=== PATIENT | female | born 2000 | race Caucasian/White ===

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

== ENCOUNTER 2025-02-01 20:03 | Inpatient (IN) | payer BC ==
--- NOTE | 2025-02-01 20:39 | ED ---
Psych HPI - General Chief Complaint: Psychiatric Symptoms Stated Complaint: mental health eval Time Seen by Provider: 02/01/25 20:16 Source: patient Mode of arrival: ambulatory - History of Present Illness Initial Comments: 25-year-old female presenting for mental health evaluation. Patient states that she has had depression for quite some time. Is been made worse recently by the fact that she was just served eviction papers. She reports that she works long hours and does not get to spend much time with her daughter and when she does she is very tired. States that she has had suicidal thoughts with no plan. No homicidal ideation. She reports that she is very tired and frustrated and is not sure where to turn or what to do. No physical complaints today. She is cu rrently on her menstrual cycle. - Related Data Home Medications Medication Instructions Recorded Confirmed Etonogestrel [Nexplanon ( 68 mg SQ [id number] 12/17/15 11/05/16 control implant)] Sertraline [Zoloft] 50 mg PO HS 11/05/16 11/05/16 Allergies Allergy/AdvReac Type Severity Reaction Status Date / Time lidocaine AdvReac Rapid Verified 02/01/25 20:14 Heart Rate Review of Systems ROS Statement: Those systems with pertinent positive or pertinent negative responses have been documented in the HPI. ROS Other: All systems not noted in ROS Statement are negative. Past Medical History Past Medical History: No Reported History History of Any Multi-Drug Resistant Organisms: None Reported Past Surgical History: No Surgical Hx Reported Past Psychological History: Anxiety, Depression Past Alcohol Use History: None Reported Past Drug Use History: None Reported - Past Family History Mother Family Medical History: Cancer Father Family Medical History: Hypertension General Exam Limitations: no limitations General appearance: alert, in no apparent distress Head exam: Present: atraumatic, normocephalic, normal inspection Eye exam: Present: normal appearance, EOMI Neck exam: Present: normal inspection. Absent: meningismus Respiratory exam: Absent: respiratory distress Neurological exam: Present: alert, oriented X3 Psychiatric exam: Present: normal affect, normal mood Skin exam: Present: warm, dry, normal color Course Vital Signs 02/01/25 02/02/25 02/02/25 20:08 03:00 03:49 Temperature 97.9 F 98.0 F Pulse Rate 115 H 86 Pulse Rate [ 68 Pulse Oximetery ] Respiratory 18 18 16 Rate Blood Pressure 138/86 127/78 Blood Pressure 111/76 [Right Arm Sitting] O2 Sat by Pulse 95 98 Oximetry Medical Decision Making - Medical Decision Making Was pt. sent in by a medical professional or institution (, JUAN, MEDIA PLANNER, urgent care, hospital, or correction...) When possible be specific @ -No Did you speak to anyone other than the patient for history (EMS, parent, family, police, friend...)? What history was obtained from this source @ -No Did you review nursing and triage notes (agree or disagree)? Why? @ -I reviewed and agree with nursing and triage notes Were old charts reviewed (outside hosp., previous admission, EMS record, old EKG, old radiological studies, urgent care reports/EKG's, correction records)? Report findings @ -No old charts were reviewed Differential Diagnosis (chest pain, altered mental status, abdominal pain women, abdominal pain men, vaginal bleeding, weakness, fever, dyspnea, syncope, headache, dizziness, GI bleed, back pain, seizure, CVA, palpatations, mental he alth, musculoskeletal)? @ -Differential Mental Health Depression, anxiety, bipolar, psychosis, schizophrenia, borderline personality, situational depression, adjustment disorder, behavioral disorder, brain tumor, malingering, substance abuse, encephalopathy, medication reaction, dementia, hypothyroidism, degenerative neurologic disorder, lupus.... This is not meant to be all-inclusive list EKG interpreted by me (3pts min.). @ -As above X-rays interpreted by me (1pt min.). @ -None done CT interpreted by me (1pt min.). @ -None done U/S interpreted by me (1pt. min.). @ -None done What testing was considered but not performed or refused? (CT, X-rays, U/S, labs)? Why? @ -None What meds were considered but not given or refused? Why? @ -None Did you discuss the management of the patient with other professionals (professionals i.e. JUAN Acosta, MEDIA PLANNER, lab, RT, psych nurse, social services designee, lawyer criminal, teacher, division officer weapons department, case specialist)? Give summary @ -Spoke with EPS nurse Was smoking cessation discussed for >3mins.? @ -No Was critical care preformed (if so, how long)? @ -No Were there social determinants of health that impacted care today? How? (Homelessness, low income, unemployed, alcoholism, drug addiction, transportation, low edu. Level, literacy, decrease access to med. care, nursing home, rehab)? @ -No Was there de-escalation of care discussed even if they declined (Discuss DNR or withdrawal of care, Hospice)? DNR status @ -No What co-morbidities impacted this encounter? (DM, HTN, Smoking, COPD, CAD, Cancer, CVA, ARF, Chemo, Hep., AIDS, mental health diagnosis, sleep apnea, morb id obesity)? @ -None Was patient admitted / discharged? Hospital course, mention meds given and route, prescriptions, significant lab abnormalities, going to OR and other pertinent info. @ -25-year-old female presenting for mental health evaluation. Urine concerning for UTI, patient started on Macrobid. She is medically cleared. EPS determined she meets inpatient criteria. Patient agreeable. Undiagnosed new problem with uncertain prognosis? @ -No Drug Therapy requiring intensive monitoring for toxicity (Heparin, Nitro, Insulin, Cardizem)? @ -No Were any procedures done? @ -No Diagnosis/symptom? @ -Depression Acute, or Chronic, or Acute on Chronic? @ -Acute on chronic Uncomplicated (without systemic symptoms) or Complicated (systemic symptoms)? @ -Complicated Side effects of treatment? @ -No Exacerbation, Progression, or Severe Exacerbation? @ -No Poses a threat to life or bodily function? How? (Chest pain, USA, AL, pneumonia, PE, COPD, DKA, ARF, appy, cholecystitis, CVA, Diverticulitis, Homicidal, Suicidal, threat to staff... and all critical care pts) @ -Yes - Lab Data Lab Results 02/01/25 02/01/25 02/01/25 Range/Units 20:30 20:30 23:59 Urine Color Yellow Urine Appearance Cloudy H (Clear) Urine pH 6.0 (5.0-8.0) Ur Specific [place] 1.036 H (1.001-1.035) Urine Protein 1+ H (Negative) Urine Glucose (UA) Negative (Negative) Urine Ketones 1+ H (Negative) Urine Blood Moderate H (Negative) Urine Nitrite Positive H (Negative) Urine Bilirubin Negative (Negative) Urine Urobilinogen 2.0 (<2.0) mg/dL Ur Leukocyte Esterase Large H (Negative) Urine RBC 4 (0-5) /hpf Urine WBC 55 H (0-5) /hpf Urine WBC Clumps Rare H (None) /hpf Ur Squamous Epith Cells 8 H (0-4) /hpf Urine Bacteria Occasional H (None) /hpf Hyaline Casts 5 H (0-2) /lpf Urine Mucus Many H (None) /hpf Urine Yeast (Budding) Occasional H (None) /hpf Urine HCG, Qual Not Detected (Not Detectd) Urine Opiates Screen Not Detected (NotDetected) Ur Oxycodone Screen Not Detected (NotDetected) Urine Methadone Screen Not Detected (NotDetected) Ur Barbiturates Screen Not Detected (NotDetected) U Tricyclic Antidepress Detected H (NotDetected) Ur Phencyclidine Scrn Not Detected (NotDetected) Ur Amphetamines Screen Detected H (NotDetected) U Methamphetamines Scrn Not Detected (NotDetected) U Benzodiazepines Scrn Detected H (NotDetected) Urine Cocaine Screen Not Detected (NotDetected) U Marijuana (THC) Screen Detected H (NotDetected) Influenza Type A (PCR) Not Detected (Not Detectd) Influenza Type B (PCR) Not Detected (Not Detectd) RSV (PCR) Not Detected (Not Detectd) SARS-CoV-2 (PCR) Not Detected (Not Detectd) Disposition Clinical Impression: Depression Disposition: ADMITTED IP TO THIS HOSP Condition: Fair Time of Disposition: 23:33
[2025-02-01 21:10] LABS: Bacteria,Urine Occasional /hpf; Bilirubin,Urine Negative (Negative); Blood,Urine Moderate (Negative); Budding Yeast,Urine Occasional /hpf; Color,Urine Yellow; Glucose,Urine (UA) Negative (Negative); Hyaline Casts,Urine 5 /lpf (0-2); Ketones,Urine 1+ (Negative); Leukocyte Esterase,Urine Large (Negative); Mucus,Urine Many /hpf; Nitrite,Urine Positive (Negative); PH, Urine 6.0 (5.0-8.0); Protein,Urine 1+ (Negative); RBC,Urine 4 /hpf (0-5); Specific Gravity,Urine 1.036 (1.001-1.035); Squamous Epithelial Cell,Urine 8 /hpf (0-4); Urobilinogen,Urine 2.0 mg/dL (<2.0); WBC,Urine 55 /hpf (0-5)
[2025-02-01 21:11] LABS: Barbiturate Screen,Urine Not Detected (NotDetected); Benzodiazepines Screen,Urine Detected (NotDetected); Opiate Screen,Urine Not Detected (NotDetected); Oxycodone Screen, Urine Not Detected (NotDetected); Phencyclidine Screen,Urine Not Detected (NotDetected); Tricyclic Antidepressant,Urine Detected (NotDetected); Urn Cannabinoid Scrn Detected (NotDetected)
[2025-02-02 01:02] LABS: RSV Not Detected (Not Detectd)
[2025-02-02] MEDS ORDERED: HALOPERIDOL LACTATE 5 MG/ML 1 ML VIAL IM PRN (03:52)
[2025-02-02] MEDS ORDERED: MAGNESIUM HYDROXIDE 2,400 MG/30 ML CUP PO PRN (03:52)
[2025-02-02] MEDS ORDERED: IBUPROFEN 600 MG TAB PO PRN (03:52)
[2025-02-02] MEDS ORDERED: MAG HYDROX/AL HYDROX/SIMETH 355 ML BOTTLE PO PRN (03:52)
[2025-02-02] MEDS ORDERED: ACETAMINOPHEN TAB 325 MG TAB PO PRN (03:52)
[2025-02-02] MEDS ORDERED: LORazepam 1 MG/0.5 ML VIAL IM PRN (03:52)
[2025-02-02] MEDS: NICOTINE 14MG/24HR PATCH TRANSDERM SCH (08:30)
[2025-02-02] MEDS: NITROFURANTOIN MONOHYD/M-CRYST 100 MG CAP PO SCH (08:30)
[2025-02-02] MEDS ORDERED: ETONOGESTREL SQ SCH (09:00)
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
[2025-02-02] MEDS: NICOTINE GUM (POLACRILEX) 2 MG GUM BUCCAL PRN (12:55)
[2025-02-02] MEDS: LORazepam 1 MG TAB PO PRN (21:16)
[2025-02-03 12:31] LABS: Basophils # (A) 0.06 10*3/uL (0.00-0.10); Basophils % (A) 0.9 %; Eosinophils # (A) 0.12 10*3/uL (0.04-0.35); Eosinophils % (A) 1.8 %; HCT 38.8 % (37.2-46.3); HGB 13.1 g/dL (12.0-15.0); Lymphocytes # (A) 1.83 10*3/uL (0.90-5.00); Lymphocytes % (A) 27.6 %; MCH 29.8 pg (27.0-32.0); MCHC 33.8 g/dL (32.0-37.0); MCV 88.2 fL (80.0-97.0); Monocytes # (A) 0.45 10*3/uL (0.20-1.00); Monocytes % (A) 6.8 %; Neutrophils # (A) 4.17 10*3/uL (1.80-7.70); Neutrophils % (A) 62.7 %; Platelet Count 345 10*3/uL (140-440); RBC 4.40 10*6/uL (4.10-5.20); RDW 11.9 % (11.5-14.5); WBC 6.64 10*3/uL (4.50-10.00)
[2025-02-03] MEDS: FLUCONAZOLE 100 MG TAB PO SCH (12:40)
[2025-02-03] MEDS: TRIAMCINOLONE ACET 0.1% OINTMENT 15 GM TUBE TOPICAL SCH (12:41)
[2025-02-03 12:52] LABS: ALT 17 U/L (4-34); AST 23 U/L (14-36); African American GFR (CKD) >90 (>60 ml/min/1.73 sqM); Albumin 4.2 g/dL (3.5-5.0); Alkaline Phosphatase 84 U/L (38-126); Anion Gap 12 mmol/L; Bilirubin, Delta 0.2 mg/dL (0.0-0.2); Bilirubin,Unconjugated 0.4 mg/dL (0.0-1.1); Blood Urea Nitrogen 8 mg/dL (7-17); Calcium 10.0 mg/dL (8.4-10.2); Carbon Dioxide 22 mmol/L (22-30); Chloride 106 mmol/L (98-107); Glucose 90 mg/dL (74-99); Non-African American GFR(CKD) >90 (>60 ml/min/1.73 sqM); Potassium 4.4 mmol/L (3.5-5.1); Sodium 140 mmol/L (137-145); Total Protein 7.4 g/dL (6.3-8.2)
--- NOTE | 2025-02-03 13:47 | P.PN ---
Progress Note - Text Progress Note Date: 02/03/25 Interval History: Patient was seen laying in bed and was directable and agreeable to speak with assembly instructions writer in the room. Patient reports feeling tired however did states she was not sleeping prior to admission. She mentions sleeping well overnight with the Ativan but was agreeable with trying trazodone tonight for sleep. She admits to chronic skin picking, stating that stress worsens this and has been ongoing her entire life. She has not consistently seeing a therapist due to past issues but this was encouraged for her excoriation. Patient reports living with herself and her daughter however her brother is supportive and looking after her daughter. At this time patient denies any suicidal or homicidal ideations, intent or plan. Patient denies any auditory, visual hallucinations and denies any paranoia or delusions. Patient denies any side effects from the medications and has been compliant with meds. Mental Status Exam: General Appearance: Patient appears to be stated age is fatigued but directable, and cooperative. Behavior: Patient is calmly laying without any agitated behavior. Speech: Patient's speech is fluent and nonpressured. Mood/Affect: Mood is improving mildly, affect is congruent and constricted. Suicidality/Homicidality: Patient denies having any suicidal or homicidal ideation intent or plan. Perceptions: Patient denies any visual hallucinations and denies any auditory hallucinations Though content/process: There is no evidence of any delusional thought content and thought process is linear and goal-directed. Memory and concentration: AOX3, grossly intact for the purposes of this session Judgment and insight: Improving mildly Assessment Major depressive disorder, recurrent Excoriation disorder Generalized anxiety disorder Cluster B personality disorder Cannabis use disorder Nicotine dependence Plan: -Patient continues to meet criteria for inpatient psychiatric admission for symptom stabilization and safety. Patient has signed adult voluntary form and medication consent and was placed in patient's chart. -Medications: Increase Prozac to 40 mg daily tomorrow for depression/anxiety, start trazodone 50 mg at bedtime for insomnia -When necessary Ativan and Haldol for agitation/aggression. -Labs: Reviewed -NRT - nicotine patch -SW on board for discharge planning. Encouraged the patient to participate in milieu. Anticipate discharge home with daughter on Thursday
[2025-02-03 19:16] LABS: Cholesterol 177.00 mg/dL (0.00-200.00); HDL Cholesterol 42.40 mg/dL (40.00-60.00); LDL Cholesterol,Calculated 123.1 mg/dL (0.0-131.0); Triglycerides 57.30 mg/dL (0.00-149.00); VLDL Calculation 11.46 mg/dL (5.00-40.00)
[2025-02-04] MEDS: NICOTINE GUM (POLACRILEX) 2 MG GUM BUCCAL PRN (19:24)
[2025-02-05 12:45] VITALS: RESP 16
[2025-02-05] MEDS: OLANZapine 10 MG TAB PO PRN (16:18)
--- NOTE | 2025-02-05 18:10 | P.MDCNMH ---
History of Present Illness H&P Date: 02/05/25 Chief Complaint: Medical management 25-year-old woman with no significant medical history presented for evaluation of mental health. Patient has significant anxiety issues and is following in the mental health unit voluntarily. She has not seen a physician in over 4 years, but reports intermittent blackout episodes that have yet to be evaluated. Otherwise, she has no acute complaints at this time and no major chronic medical conditions including hypertension, hyperlipidemia, diabetes, history of stroke or MA. Patient is hemodynamically stable. CBC, CMP, lipid panel, TSH are unremarkable. Urinalysis was contaminated. Urine tox appearance positive for tricyclic antidepressants, amphetamines, benzodiazepines, marijuana. Influenza A, B, RSV, COVID are negative. No images to review. Gen: In NAD, non-toxic HEENT: normocephalic, atraumatic, hearing acuity is intant, mucous membranes moist CVS: perfusing all extremities well, no pitting edema, Respiratory: symmetric chest expansion, no accessory muscle use, GI: soft, NTTP, ND, : no suprapubic tenderness, no CVA tenderness MSK/Derm: no rashes, cyanosis Neuro: CN II-XII intact, no motor weakness, Psych: cooperative, euthymic mood, judgment and insight is intact Labs and imaging as above Assessment/plan: Mildly overweight -Diet and exercise counseling - Outpatient weight loss referral - Recommend establishment with PCP, referral will be made to internal medicine clinic upon discharge Anxiety Major depressive disorder -Care per primary team Thank you for this consult, please reach out with any further questions or concerns. Past Medical History Past Medical History: No Reported History History of Any Multi-Drug Resistant Organisms: None Reported Past Surgical History: No Surgical Hx Reported Past Anesthesia/Blood Transfusion Reactions: Unable to Obtain Past Psychological History: Anxiety, Depression Past Alcohol Use History: None Reported Past Drug Use History: None Reported - Past Family History Mother Family Medical History: Cancer Father Family Medical History: Hypertension Medications and Allergies Home Medications Medication Instructions Recorded Confirmed Type Etonogestrel [Nexplanon ( 68 mg SQ [id number] 12/17/15 11/05/16 History control implant)] Sertraline [Zoloft] 50 mg PO HS 11/05/16 11/05/16 History Allergies Allergy/AdvReac Type Severity Reaction Status Date / Time lidocaine AdvReac Rapid Verified 02/01/25 20:14 Heart Rate Physical Exam Osteopathic Statement: *. No significant issues noted on an osteopathic structural exam other than those noted in the History and Physical/Consult. Vitals: Vital Signs Temp Pulse Resp BP Pulse Ox 02/05/25 12:40 97.8 F 80 16 110/62 98 02/04/25 21:00 98.3 F 97 18 101/65 99 Intake and Output 02/05/25 02/05/25 02/05/25 06:59 14:59 22:59 Other: Weight 66.1 kg Cranial Nerve Examination - Cranial Nerves Cranial Nerve II- Optic: Intact Cranial Nerve III- Oculomotor: Intact Cranial Nerve IV- Trochlear: Intact Cranial Nerve V- Trigeminal: Intact Cranial Nerve - Abducens: Intact Cranial Nerve VII- Facial: Intact Cranial Nerve VIII- Auditory: Intact Cranial Nerve IX- Glossopharyngeal: Intact Cranial Nerve X- Vagus: Intact Cranial Nerve XI- Accessory: Intact Cranial Nerve XII- Hypoglossal: Intact Results CBC & Chem 7: 02/03/25 11:52 02/03/25 11:52
--- NOTE | 2025-02-05 22:23 | P.PN ---
Progress Note - Text Progress Note Date: 02/04/25 Interval History: Patient was seen in the hallway and was cooperative with assessment. She claims she is doing well, reports mood is good. Felsl her anxiety and depression are improving. She reports concern over feeling uncomfortable around her roommate who has a severe mental illness and therefore she is spending most of the day out of their room to minimize contact with the roommate. She hopes she can switch rooms. She is recorded as having slept about 6 hours last night. She asks for a higher dose of Trazodone to help her sleep. At this time patient denies any suicidal or homicidal ideation, intent or plan. Patient denies any auditory, visual hallucinations and denies any paranoia or delusions. Patient denies any side effects from the medications and has been compliant with meds. She inquires about discharge on Thursday. Mental Status Exam: General Appearance: Patient appears to be stated age, dressed in clean casual attire, hair is combed and braided, wearing eyeglasses Behavior: Patient is calmly standing without any agitated behavior. Speech: Patient's speech is fluent and nonpressured. Mood/Affect: Mood is improving mildly, affect is congruent and constricted. Suicidality/Homicidality: Patient denies having any suicidal or homicidal ideation intent or plan. Perceptions: Patient denies any visual hallucinations and denies any auditory hallucinations Though content/process: There is no evidence of any delusional thought content and thought process is linear and goal-directed. Memory and concentration: AOX3, grossly intact for the purposes of this session Judgment and insight: Improving mildly Assessment/Plan: Continue with current diagnosis. Patient continues to meet criteria for inpatient psychiatric admission for symptom stabilization and safety. Increase Trazodone to 100 mg QHS for sleep. Monitor for medication compliance and for any psychotropic medication side effects. Will continue to monitor ongoing response to treatment. Encouraged participation in milieu.
--- NOTE | 2025-02-05 22:27 | P.PN ---
Progress Note - Text Progress Note Date: 02/05/25 Interval history: Patient was seen resting in bed in her room, awakens easily, and was cooperative with assessment. She claims she is doing ok, appears tired and has difficulty staying awake for assessment. She is recorded as having slept only about 4 hours last night. She then received Ativan 1 mg po x 1 at around 11:33am. Her room was switched yesterday due to feeling uncomfortable around a paranoid roommate, and she feels better regarding that today. At this time patient denies any suicidal or homicidal ideation, intent or plan. Patient denies any auditory, visual hallucinations and denies any paranoia or delusions. Patient denies any side effects from the medications and has been compliant with meds. She inquires about discharge on Thursday. Mental Status Exam: General Appearance: Patient appears to be stated age, dressed in clean casual attire, hair is combed and braided, wearing eyeglasses Behavior: Patient is calmly laying without any agitated behavior, sleepy, has difficulty staying awake Speech: Patient's speech is fluent and nonpressured. Mood/Affect: Mood is improving mildly, affect is congruent and constricted. Suicidality/Homicidality: Patient denies having any suicidal or homicidal ideation intent or plan. Perceptions: Patient denies any visual hallucinations and denies any auditory hallucinations Though content/process: There is no evidence of any delusional thought content and thought process is linear and goal-directed. Memory and concentration: AOX3, grossly intact for the purposes of this session Judgment and insight: Improving mildly Assessment/Plan: Continue with current diagnosis. Patient continues to meet criteria for inpatient psychiatric admission for symptom stabilization and safety. Continue medications as currently prescribed. Monitor for medication compliance and for any psychotropic medication side effects. Will continue to monitor ongoing response to treatment. Encouraged participation in milieu.
[2025-02-05] MEDS: MELATONIN 5 MG TABLET PO SCH (23:47)
[2025-02-06 11:05] VITALS: BP 101/67; PULSE 77; TEMP 97.7
--- NOTE | 2025-02-06 14:03 | P.DS ---
Providers Date of admission: 02/02/25 03:34 Expected date of discharge: 02/06/25 Attending physician: Zoe River MD Consults: 02/02/25 03:52 Consult Physician Routine Consulting Provider: Vincenzo Griffin Consult Reason/Comments: Medical H&P Do you want consulting provider notified?: Yes Primary care physician: CHRISTI SHEFFIELD NPC - Discharge Diagnosis(es) (1) Major depressive disorder, recurrent Status: Acute Priority: High (2) Excoriation (skin-picking) disorder Status: Acute Priority: Medium (3) Generalized anxiety disorder Status: Acute Priority: Medium (4) Cluster B personality disorder Status: Chronic Priority: Medium (5) Cannabis use disorder Status: Acute Priority: Low (6) Nicotine dependence Status: Acute Priority: Low Hospital Course: Admission HPI: Admission note was completed by Dr. Blanco "The patient presented to the hospital by herself due to ongoing thoughts of not wanting to be here. The patient is having several stressors in her life including feeling overworked, facing eviction and not having enough time to spend with her 4-year-old daughter depressed and started having feelings of not wanting to be here anymore. She denied any direct suicidal thoughts, ideation, plan or intent. She notes that her depression over the last 2 weeks been 8/10 and her anxiety 10/10. She notes that she has been struggling with sleep and only getting 3 to 4 hours of broken sleep at night. She notes that she is constantly feeling rundown and fatigued. She notes that she is not able to concentrate. She feels hopeless at this point. She notes she has been having bouts of crying. She notes feelings of guilt and shame. When asking if she felt that she would be safe if she could leave today she was unable to answer this. She denies any homicidal ideations or access to guns. Stressors: Housing, Finance Review of psychiatric systems: Bipolar disorder-negative OCD-every time the patient completes the task she has to knock twice but this does not interfere with work or family Posttraumatic stress disorder-negative Anxiety-patient struggles with chronic worrying, holding her breath, clenching her jaw, tension headaches, muscle tension, nausea, problems initiating sleep, chronic fatigue and anger issues Psychosis-negative BPT-history of self harming, feelings of emptiness, splitting, emotional dysregulation, stormy relationships, feeling hollow on the inside and the realization PSP-has urge to pick, once picking loses track of time, picking induces pleasure, after feeling regret" Hospital course: Upon admission to the unit patient was directable and agreeable to commence treatment and signed adult voluntary form. Patient got along well with other patients on the unit and followed unit protocol. Patient was compliant with the medications and denied any side effects throughout hospital course. Patient was started on Prozac and this was increased to 40 mg daily for depression/anxiety, trazodone 50 mg at bedtime for insomnia. Patient spoke of her stressors and engaged in therapy both group and individual. Patient was also seen by medical team for history and physical exam. Patient was started on antibiotics for UTI. Throughout the course of the hospitalization patient gradually improved with regards to mood, anxiety, sleep and returned back to their baseline level of functioning. On the day of discharge patient denied any suicidal or homicidal ideations intent or plan denied any auditory or visual hallucinations. The patient denied any access to guns or weapons. Patient denied any paranoia and did not endorse any delusions. Patient does not have a significant history of substance abuse and was counseled on abstaining from all substances including alcohol and marijuana. Patient was also counseled on the medications and need for regular compliance and was encouraged to follow-up with their outpatient appointment for mental health and also for primary care. Patient to be discharged home along with daughter will follow-up with [facility] psychiatry. Mental status exam: General Appearance: Patient appears to be stated age is alert, pleasant, and cooperative. Patient is in no acute distress and has improved hygiene and grooming Behavior: Patient is calmly seated without any agitated behavior. Speech: Patient's speech is fluent and nonpressured. Mood/Affect: Patient reports their mood is "good", affect is congruent and euthymic. Suicidality/Homicidality: Patient denies having any suicidal or homicidal ideation intent or plan. Perceptions: Patient denies any auditory or visual hallucinations. Though content/process: There is no evidence of any delusional thought content and thought process is linear and goal-directed. Memory and concentration: AOX3, grossly intact for the purposes of this session. Can spell "WORLD" backwards correctly. Judgment and insight: Fair Impression: Major depressive disorder, recurrent Excoriation disorder Generalized anxiety disorder Cluster B personality disorder Cannabis use disorder Nicotine dependence Plan: -Continue with discharge today as patient has improved and stabilized psychiatrically and is not currently an imminent threat to themself and/or others. -Continue medications: Prozac 40 mg daily, trazodone 50 mg at bedtime -Patient was counseled on the need for medication compliance and appropriate fol low-up at mental health and also primary care for medical issues. Patient verbalized understanding and agreed. -Social work to help coordinate patients discharge today. also to ensure safe home environment that guns/weapons are either removed from the home or locked away. Social work also to arrange for patients follow up appointments with [facility] for psychiatric care along with follow up with primary care provider. -Patient counseled on abstaining from recreational drugs and marijuana and alcohol. Was informed/educated on the adverse effects on their physical and mental health. Patient verbally agreed and understood. -Patient was instructed to return to the hospital or seek immediate medical care if their psychiatric or medical symptoms do worsen or reoccur. Abnormal Labs 02/01/25 20:30 Urine Appearance Cloudy H Ur Specific [place] 1.036 H Urine Protein 1+ H Urine Ketones 1+ H Urine Blood Moderate H Urine Nitrite Positive H Ur Leukocyte Esterase Large H Urine WBC 55 H Urine WBC Clumps Rare H Ur Squamous Epith Cells 8 H Urine Bacteria Occasional H Hyaline Casts 5 H Urine Mucus Many H Urine Yeast (Budding) Occasional H U Tricyclic Antidepress Detected H Ur Amphetamines Screen Detected H U Benzodiazepines Scrn Detected H U Marijuana (THC) Screen Detected H Allergies Allergy/AdvReac Type Severity Reaction Status Date / Time lidocaine AdvReac Rapid Verified 02/01/25 20:14 Heart Rate Vital Signs Temp 97.7 F 02/06/25 11:04 Pulse 77 02/06/25 11:04 Resp 16 02/06/25 11:04 BP 101/67 02/06/25 11:04 Pulse Ox 100 02/06/25 11:04 FiO2 Intake & Output 02/05/25 02/06/25 02/06/25 18:59 06:59 18:59 Weight 66.1 kg Patient Condition at Discharge: Stable Plan - Discharge Summary Discharge Rx Participant: No New Discharge Prescriptions: New traZODone HCL [Desyrel] 150 mg PO HS 30 Days #90 tab Triamcinolone 0.1% Cream [Kenalog 0.1% Cream] 1 applicatio TOPICAL BID #15 gm Nicotine Gum (Polacrilex) [Nicorette] 2 mg BUCCAL Q2HR PRN 30 Days #60 pieceofgum PRN Reason: Nicotine Cravings Fluconazole [Diflucan] 100 mg PO DAILY 30 Days #30 tab Nitrofurantoin Monohyd/M-Cryst [Macrobid] 100 mg PO BID 1 Days #1 cap Melatonin 5 mg PO HS 30 Days #30 tab FLUoxetine HCL [PROzac] 40 mg PO DAILY 30 Days #60 cap Continue Etonogestrel [Nexplanon ( control implant)] 68 mg SQ [id number] Discontinued Sertraline [Zoloft] 50 mg PO HS Discharge Medication List Etonogestrel [Nexplanon ( control implant)] 68 mg SQ [id number] 12/17/15 [History] FLUoxetine HCL [PROzac] 40 mg PO DAILY 30 Days #60 cap 02/06/25 [Rx] Fluconazole [Diflucan] 100 mg PO DAILY 30 Days #30 tab 02/06/25 [Rx] Melatonin 5 mg PO HS 30 Days #30 tab 02/06/25 [Rx] Nicotine Gum (Polacrilex) [Nicorette] 2 mg BUCCAL Q2HR PRN 30 Days #60 pieceofgum 02/06/25 [Rx] Nitrofurantoin Monohyd/M-Cryst [Macrobid] 100 mg PO BID 1 Days #1 cap 02/06/25 [Rx] Triamcinolone 0.1% Cream [Kenalog 0.1% Cream] 1 applicatio TOPICAL BID #15 gm 02/06/25 [Rx] traZODone HCL [Desyrel] 150 mg PO HS 30 Days #90 tab 02/06/25 [Rx] Follow up Appointment(s)/Referral(s): [facility] [Other] - 02/08/25 3:15 pm (Haley Maciel (virtual appt) prescriber pt was d/c for therapy and was sent a list of referrals for counseling. ) [facility] [Other[facility] Patient Instructions/Handouts: How to Stop Smoking (DC), Depression (DC) Activity/Diet/Wound Care/Special Instructions: [facility] Discharge Info Avoid the use of street drugs and alcohol. Take all medications as prescribed. When you are in need of refills on your medications, please contact your ou tpatient medical provider and/or outpatient psychiatrist. Please go to your scheduled outpatient appointments for aftercare treatment. If symptoms return or become worse, call the crisis line at or and/or visit the nearest emergency room for assistance. [place] Suicide and Crisis Lifeline - call or text 838. Discharge Disposition: HOME SELF-CARE
== END 2025-02-06 13:17 | disposition home or self-care (01) | DRG 885 ==
LOC: EC 20:03 → 3MHU 02-02 03:34
PROVIDERS: ADMIT Psychiatry & Neurology Psychiatry; ATTEND Psychiatry & Neurology Psychiatry
DX: F33.9 Major depressive disorder, recurrent, unspecified (principal); R45.851 Suicidal ideations; N39.0 Urinary tract infection, site not specified; F60.89 Other specific personality disorders; E66.3 Overweight; F12.90 Cannabis use, unspecified, uncomplicated; F17.200 Nicotine dependence, unspecified, uncomplicated; F41.1 Generalized anxiety disorder; F42.4 Excoriation (skin-picking) disorder; G44.209 Tension-type headache, unspecified, not intractable; G47.00 Insomnia, unspecified; R53.82 Chronic fatigue, unspecified; Z79.899 Other long term (current) drug therapy; Z82.49 Family history of ischemic heart disease and other diseases of the circulatory system; Z91.51 Personal history of suicidal behavior; Z91.52 Personal history of nonsuicidal self-harm; Z11.52 Encounter for screening for COVID-19
CPT/HCPCS: 80053; 80061; 80306; 81001; 81025; 82075; 82248; 83036; 84443; 85025; 87636; 99285